=== PATIENT | female | born 1975 | race American Indian/Alaskan Native ===

== ENCOUNTER 2020-12-12 11:30 | Outpatient (CLI) | payer OTHER ==
--- NOTE | 2020-12-12 14:20 | Mammography Report ---
DIGITAL SCREENING MAMMOGRAM WITH CAD, 12/12/2020 CLINICAL INFORMATION / INDICATION: Routine screening mammography. TECHNIQUE: Digital bilateral 2D mammography was obtained in the craniocaudal and mediolateral obliqu e projections. This examination was interpreted with the benefit of Computer-Aided Detection analysis . COMPARISON: None, baseline FINDINGS: Breast Density: The breasts are extremely dense, which lowers the sensitivity of mammography. No dominant mass, suspicious calcifications, or architectural distortion in the left breast. Multiple benign-appearing calcifications are seen in the right breast including 2 groups which have b enign characteristics. A third group in the far upper posterior right breast seen only on the MLO vie w probably is related to this process but the calcifications are more indeterminate. IMPRESSION: Mildly indeterminate grouped microcalcifications on the right Follow up recommendation: Right magnification views BI-RADS Category 0: Incomplete. Needs additional imaging evaluation and/or prior mammograms for denis rison. A "normal" or negative report should not discourage follow up or biopsy of a clinically significant f inding. A written summary of these findings will be mailed to the patient. The patient will be entered into a mammography reporting system which will generate a reminder letter for the patient's next appointmen t at the appropriate interval. The [employer] recommends yearly mammograms starting at age 40 and continuing as l freddy as a woman is in good health. Breast MRI is recommended for women with an approximate 20-25% or greater lifetime risk of breast cancer, including women with a strong family history of breast or ova sunday cancer or who have been treated for Hodgkin's disease. Signer Name: Preet Chacko MD Signed: 12/12/2020 2:15 PM Workstation Name: [id number]
== END 2020-12-12 11:31 | disposition home or self-care (01) ==
LOC: SPVWC 11:30
PROVIDERS: ATTEND Nurse Practitioner Acute Care
DX: Z12.31 Encounter for screening mammogram for malignant neoplasm of breast (principal)
CPT/HCPCS: 77067